=== PATIENT | male | born 1985 | race African-American/Black ===

== ENCOUNTER 2017-04-03 12:00 | Emergency (ER) | payer SELFPAY ==
[2017-04-04 22:45] LABS: Chlamydia by PCR DETECTED (NotDetected); GC by PCR Not Detected (NotDetected)
== END 2017-04-03 13:37 | disposition home or self-care (01) ==
LOC: ERS 12:00
DX: R30.0 Dysuria (principal); I10 Essential (primary) hypertension
CPT/HCPCS: 87491; 87591; 99282

== ENCOUNTER 2017-06-11 14:17 | Outpatient (CLI) | payer OTHER | END 2017-06-11 14:18 | disposition home or self-care (01) | LOC: BICRAD 14:17 | PROVIDERS: ATTEND Internal Medicine | DX: Z02.71 Encounter for disability determination (principal); M18.11 Unilateral primary osteoarthritis of first carpometacarpal joint, right hand; M25.712 Osteophyte, left shoulder; Z98.890 Other specified postprocedural states | CPT/HCPCS: 72100 ==

== ENCOUNTER 2017-07-04 12:04 | Emergency (ER) | payer SELFPAY | END 2017-07-04 12:38 | disposition home or self-care (01) | LOC: ERS 12:04 | DX: B35.3 Tinea pedis (principal); I10 Essential (primary) hypertension | CPT/HCPCS: 99282 ==

== ENCOUNTER 2017-09-08 15:36 | Emergency (ER) | payer SELFPAY | END 2017-09-08 16:39 | disposition left against medical advice (07) | LOC: ERS 15:36 | DX: Z53.21 Procedure and treatment not carried out due to patient leaving prior to being seen by health care provider (principal) ==

== ENCOUNTER 2019-05-15 08:08 | Emergency (ER) | payer SELFPAY ==
[2019-05-15 08:42] LABS: #Basophils 0.1 thou/uL (0.0-0.2); #Eosinphils 0.1 thou/uL (0.0-0.7); #Lymphocytes 3.1 thou/uL (1.20-3.40); #Monocytes 0.7 thou/uL (0.11-0.59); #Neutrophils 2.5 thou/uL (1.40-6.50); %Basophils 1.6 % (0.0-1.0); %Eosinophils 1.8 % (0.0-10.0); %Lymphocytes 47.8 % (21.0-51.0); %Monocytes 10.3 % (0.0-10.0); %Neutrophils 38.5 % (42.0-75.0); Hemoglobin 13.7 g/dL (14.0-18.0); Mean Corpuscular Hemoglobin 24.4 pg (27.0-31.0); Mean Corpuscular Volume 76.3 fL (78.0-98.0); Mean Platelet Volume 9.7 fL (7.4-10.4); Platelet Count 158 thou/uL (130-400); RBC Distribution Width 13.5 % (11.5-14.5); Red Blood Cell (RBC) Count 5.62 mill/uL (4.70-6.10); White Blood Cell (WBC) Count 6.4 thou/uL (4.8-10.8)
[2019-05-15 08:57] LABS: ALT (SGPT) 50 U/L (8-55); AST (SGOT) 51 U/L (5-34); Albumin 4.4 g/dL (3.5-5.0); Alkaline Phosphatase 46 U/L (40-110); Anion Gap 14 mmol/L (10-20); BUN (Urea Nitrogen) 13 mg/dL (8.9-20.6); Bilirubin, Total 0.4 mg/dL (0.2-1.2); Calc. Creatinine Clearance 0 mL/min (70-130); Calcium 9.5 mg/dL (7.8-10.44); Carbon Dioxide 23 mmol/L (22-29); Chloride 105 mmol/L (98-107); Estimated GFR-MDRD 64; Globulin 3.1 g/dL (2.4-3.5); Glucose 108 mg/dL (70-105); Potassium 3.6 mmol/L (3.5-5.1); Protein, Total 7.5 g/dL (6.0-8.3); Sodium 138 mmol/L (136-145)
--- NOTE | 2019-05-15 09:16 | RAD ---
CHEST 1 VIEW: HISTORY: Dyspnea. COMPARISON: 04/11/2014. FINDINGS: There are subtle increased interstitial markings throughout the lungs, although this could be sequela e of lung hypoinflation. No pneumothorax. No significant effusion. Heart size upper limits of norm al. IMPRESSION: Mild increased interstitial markings in both lungs may be sequelae of early edema versus lung hypoinf lation and atelectatic changes. A 2-view full-inspiration radiograph may be beneficial if clinically warranted. POS: [facility]
== END 2019-05-15 10:56 | disposition short-term general hospital (02) ==
LOC: ERS 08:08
DX: R06.01 Orthopnea (principal); E66.9 Obesity, unspecified; I10 Essential (primary) hypertension; Z79.899 Other long term (current) drug therapy
CPT/HCPCS: 36415; 71045; 80053; 83880; 84484; 85025; 93005

== ENCOUNTER 2019-11-26 14:42 | Emergency (ER) | payer SELFPAY ==
--- NOTE | 2019-11-26 15:31 | RAD ---
XR Hand Rt 3 View STANDARD HISTORY: Injury, right hand pain FINDINGS: No acute fracture or dislocation is identified. There are postop changes with plate and screws in the proximal phalanx of the index finger. A small well-corticated bony density in the radial aspect of the fourth MCP joint is again seen as on 09/20/2011
[2019-11-26] MEDS ORDERED: Lidocaine 1% (PF) 30 ML VIAL ONE (15:39)
[2019-11-26] MEDS ORDERED: Bacitracin 1 PK ONE (17:59)
== END 2019-11-26 18:05 | disposition home or self-care (01) ==
LOC: ERS 14:42
DX: S61.306A Unspecified open wound of right little finger with damage to nail, initial encounter (principal); I10 Essential (primary) hypertension; Z79.899 Other long term (current) drug therapy; W18.30XA Fall on same level, unspecified, initial encounter
CPT/HCPCS: 11730; J2001

== ENCOUNTER 2020-02-24 08:25 | Emergency (ER) | payer SELFPAY ==
[2020-02-24] MEDS ORDERED: Proparacaine 0.5% Opth 15 ML BOT ONE (09:07)
== END 2020-02-24 10:03 | disposition home or self-care (01) ==
LOC: ERS 08:25
DX: H53.8 Other visual disturbances (principal); I10 Essential (primary) hypertension; Z79.899 Other long term (current) drug therapy
CPT/HCPCS: 99283

== ENCOUNTER 2020-03-31 21:42 | Emergency (ER) | payer SELFPAY ==
[2020-03-31] MEDS ORDERED: Ketorolac Tromethamine 30 MG/ML VIAL ONE (22:07)
[2020-03-31 22:12] LABS: Bacteria/HPF None Seen HPF (None Seen); Bilirubin Unable to Interpret (Negative); Blood, Urine Unable to Interpret (Negative); Clarity Clear (Clear); Glucose, Urine (Dipstick) Unable to Interpret mg/dL (Negative); Ketone, Urine Unable to Interpret mg/dL (Negative); Leukocyte Unable to Interpret Leu/uL (Negative); Mucous/LPF Rare LPF (<2+); Nitrite Unable to Interpret (Negative); Protein, Urine (Dipstick) Unable to Interpret mg/dL (Neg-Trace); RBC/HPF 0-3 HPF (0-3); Specific Gravity, Urine 1.021 (1.002-1.036); Squamous Epithelial None Seen HPF (0-3); Urobilinogen UNABLE TO INTERPRET mg/dL (Less than 2); WBC/HPF 0-3 HPF (0-3); pH, Urine 5.5 (5.0-9.0)
--- NOTE | 2020-03-31 22:39 | CT ---
CT abdomen noncontrast HISTORY: Left flank pain. FINDINGS: Each renal collecting system, ureter, and urinary bladder are decompressed without stone ev ident. At the left posterior lung base, a bilobed well-circumscribed soft tissue density nodule is 0.9 cm gr eatest diameter. It was not present on the prior study from 04/16/2008. Liver is diffusely hypodense. Abdominal fat and a partial loop of nondilated small bowel extends into an umbilical hernia. Lack of contrast limits evaluation of the soft tissues. No evidence of bowel obstruction or inflammat ion. IMPRESSION : No evidence of urinary tract obstruction or calcification. Left lower lobe lung nodule 0.9 cm. Please consider follow-up CT chest with IV contrast in 3 months t o evaluate for change and other nodules. Hepato-steatosis. Code LN.
== END 2020-03-31 22:48 | disposition home or self-care (01) ==
LOC: ERS 21:42
DX: S39.012A Strain of muscle, fascia and tendon of lower back, initial encounter (principal); R10.9 Unspecified abdominal pain; I10 Essential (primary) hypertension; Z79.899 Other long term (current) drug therapy; X58.XXXA Exposure to other specified factors, initial encounter
CPT/HCPCS: 74176; 81003; 81015; 96372; J1885

== ENCOUNTER 2020-07-05 19:10 | Emergency (ER) | payer SELFPAY ==
[2020-07-05] MEDS ORDERED: Ketorolac Tromethamine 30 MG/ML VIAL ONE (19:59)
== END 2020-07-05 21:15 | disposition home or self-care (01) ==
LOC: ERS 19:10
DX: R50.9 Fever, unspecified (principal); R05 Cough; R19.7 Diarrhea, unspecified; R43.9 Unspecified disturbances of smell and taste; I10 Essential (primary) hypertension; Z20.822 Contact with and (suspected) exposure to COVID-19; Z79.899 Other long term (current) drug therapy
CPT/HCPCS: 71045; 96374; J1885